=== PATIENT | male | born 2000 | race Caucasian/White ===

== ENCOUNTER 2021-02-25 14:03 | Emergency (ER) | payer SELFPAY ==
[2021-02-25 14:08] VITALS: BP 131/82; PULSE 99; RESP 16; TEMP 36.9; O2SAT 97
--- NOTE | 2021-02-25 14:09 | DI.RAD.S_ITS ---
PROCEDURE: XR FINGER RT MIN 2V INDICATIONS: caught in spring HIS THUMB TECHNIQUE: AP hand, 2 views of the right finger(s) acquired. COMPARISON: None. FINDINGS: Bones: No fractures or dislocations. No suspicious bony lesions. Soft tissues: No suspicious soft tissue calcifications. IMPRESSION: No fracture identified. If the patient's pain or other symptoms persist, consider further evaluation with MRI Dictated by: Brayan Villagomez M.D. on 02/25/2021 at 14:53 Approved by: Brayan Villagomez M.D. on 02/25/2021 at 14:54
--- NOTE | 2021-02-25 15:08 | ED.GENADULT ---
HPI - General Adult General Chief complaint: Extremity Injury, Upper Stated complaint: possible broken right thumb Time Seen by Provider: 02/25/21 15:03 Source: patient Mode of arrival: Ambulatory Limitations: no limitations History of Present Illness HPI narrative: Patient is a 20-year-old male who is here for evaluation of a injury that he sustained to his right thumb. He states that he got his thumb caught between 2 objects when a spurring on the object that he was working with sperm back in hit it. He also injured his left thumb but he can move it without problems he does not think there is an injury to it. He is having discomfort between the MCP and IP joint of the right thumb. Review of Systems Constitutional Constitutional: Reports system reviewed and no additional complaints, except as documented Musculoskeletal Musculoskeletal: Denies tingling Comments: Right thumb pain Integumentary/Breasts Comments: Abrasion to the back of the right thumb Neurologic Neurologic: Denies tingling Hematologic/Lymphatic On Anticoagulants: No Patient History Medical History Healthy adult Social History Smoking Status: Current every day smoker Smoking Status: Current every day smoker Exam Initial Vital Signs Initial Vital Signs: Vital Signs Temperature 98.4 F 02/25/21 14:08 Pulse Rate 99 H 02/25/21 14:08 Respiratory Rate 16 02/25/21 14:08 Blood Pressure 131/82 02/25/21 14:08 Pulse Oximetry 97 02/25/21 14:08 Const General: cooperative and comfortable Cardio Pulses: radial pulses present on the right Skin Other: Small abrasion between the IP and MCP joint of the right thumb. There is no active bleeding. He also has a small amount of bleeding along the nailbed of the right thumb without a subungual hematoma. There is a small subungual hematoma on the left thumb. Neuro Cognition: normal cognition Speech: speech normal Sensory Exam: no sensory deficits noted Extrem Other: Patient has full range of motion of the IP joint and MCP joint of the left thumb. No tenderness to palpation. Patient does have some limited range of motion of the MCP joint of the right thumb secondary to discomfort but the IP joint is normal. Psych Appearance: grossly normal and well kempt Course Orders Ordered: ED Orders 02/25/21 14:09 XR finger RT min 2V Stat Vital Signs Vital signs: Vital Signs - 8 hr 02/25/21 14:08 Temperature 98.4 F Pulse Rate 99 H Respiratory Rate 16 Blood Pressure 131/82 Pulse Oximetry 97 Medical Decision Making Imaging Data Extremity x-ray #1: Radiologist's Impression: [address] [id number] ReportSigned Patient: Cezar Álvarez#: [id number]: 2000Acct:[id number]/Sex: 20 / MDate of Service: 02/25/21Loc: EDAccession Number: [id number] Procedure: XR finger RT min 2V Ordering Provider: Jose Roberto Broussard D.O. PROCEDURE: XR FINGER RT MIN 2V INDICATIONS: caught in spring HIS THUMB TECHNIQUE: AP hand, 2 views of the right finger(s) acquired. COMPARISON: None. FINDINGS: Bones: No fractures or dislocations. No suspicious bony lesions. Soft tissues: No suspicious soft tissue calcifications. IMPRESSION: No fracture identified. If the patient's pain or other symptoms persist, consider further evaluation with MRI Dictated by: Brayan Villagomez M.D. on 02/25/2021 at 14:53 Approved by: Brayan Villagomez M.D. on 02/25/2021 at 14:54 [facility] Narrative Medical decision making narrative: There were no fractures noted on the x-ray of the right thumb. I suspect this is just a contusion. I did discuss this with the patient. We did discuss conservative treatments at home. Other than the small subungual hematoma of the left thumb it is otherwise unremarkable and has full range of motion and not having any discomfort. Will hold on x-rays for this. He was given return precautions. He expressed understanding and agreement. Discharge Plan Departure Patient Disposition: Home Clinical Impression: Contusion of finger of right hand Activity Restrictions/Additional Instructions: There were no fractures noted on the x-rays. Recommend that you do place ice over your thumb as this will probably help with the discomfort. You can wash your hand like normal. Return to the emergency department for any new or worsening symptoms
== END 2021-02-25 15:23 | disposition home or self-care (01) ==
PROVIDERS: Emergency Provider Emergency Medicine
DX: S60.011A Contusion of right thumb without damage to nail, initial encounter (principal); W23.0XXA Caught, crushed, jammed, or pinched between moving objects, initial encounter
CPT/HCPCS: 73140; 99281; 99283